=== PATIENT | male | born 1965 | race Caucasian/White ===

== ENCOUNTER 2025-03-19 16:19 | Emergency (ER) | payer SELFPAY ==
[~2025-03-19] VITALS: Ht 175.3 cm; Wt 77.1 kg
[2025-03-19 16:31] VITALS: TEMP 98.3
[2025-03-19] MEDS ORDERED: LIDOCAINE 1% INJ 50 ML MDV IJ ONE (16:58)
[2025-03-19] MEDS: LIDOCAINE 1% INJ 50 ML MDV IJ ONE (16:59)
[2025-03-19 17:42] VITALS: BP 127/80; O2SAT 98
== END 2025-03-19 17:42 | disposition home or self-care (01) ==
LOC: ER 16:24
DX: S61.012A Laceration without foreign body of left thumb without damage to nail, initial encounter (principal); Z60.2 Problems related to living alone; W26.8XXA Contact with other sharp object(s), not elsewhere classified, initial encounter; Y93.89 Activity, other specified; Y92.89 Other specified places as the place of occurrence of the external cause; Y99.8 Other external cause status
CPT/HCPCS: 12001; 99282; J3490